=== PATIENT | male | born 1955 | race Caucasian/White ===

== ENCOUNTER → 2020-05-25 | Outpatient (CLI) | payer OTHER, BLACK LUNG ==
[~2020-05-25] MED LIST: BREO ELLIPTA 21 EACH INH; CHANTIX1 MG PO; CORDARONE 200M200 MG PO; CYANOCOBAL1000 MCG/1 INJ; FLOMAX 0.4 MG0.4 MG PO; LEVOFLOXACIN500 MG PO; LIPITOR TAB 2020 MG PO; PERCOCET 5/325 T1 EA PO; PRINIVIL20 MG PO; PROSCAR5 MG PO; VENTOLIN HFA 66.7 GM INH; VITAMIN B-12100 MC1 INJ
== END ==
LOC: CT 08:08
DX: J60 Coalworker's pneumoconiosis (principal); J43.9 Emphysema, unspecified; Z72.0 Tobacco use; I10 Essential (primary) hypertension; I25.2 Old myocardial infarction; E78.2 Mixed hyperlipidemia; E11.40 Type 2 diabetes mellitus with diabetic neuropathy, unspecified
CPT/HCPCS: 36415; 71260; 82565; Q9963

== ENCOUNTER 2020-12-27 08:52 | Inpatient (IN) | payer OTHER ==
[~2020-12-27] VITALS: Ht 167.6 cm; Wt 90.3 kg
[~2020-12-27 08:52] MED LIST changes: -LIPITOR TAB 2020 MG PO; -VENTOLIN HFA 66.7 GM INH
[2020-12-27 10:34] LABS: HEMOGLOBIN 15.9 gm/dl (14.0-17.5); RED BLOOD COUNT 4.92 M/UL (4.20-5.50)
[2020-12-28] MEDS ORDERED: LIPITOR TAB 2020 MG PO (00:30)
[2020-12-28 03:16] LABS: WHITE BLOOD COUNT 12.4 K/UL (4.5-11.0)
[2020-12-28 03:25] LABS: RED BLOOD COUNT 4.11 M/UL (4.20-5.50)
[2020-12-28 03:36] LABS: BUN/CREATININE RATIO 15 (0-10)
[2020-12-28] MEDS ORDERED: NABUMETONE500 MG PO (11:05)
[2020-12-28] MEDS ORDERED: TRELEGY ELLIPT1 EACH INH (11:05)
[2020-12-28] MEDS ORDERED: ASPIRIN EC81 MG PO ×2 (11:06→11:14)
[2020-12-28] MEDS ORDERED: COMBIVENT RESPIM4 GM INH (11:06)
[2020-12-28] MEDS ORDERED: DICLOFENAC SOD100 GM TOP (11:10)
[2020-12-28] MEDS ORDERED: TOPIRAMATE50 MG PO (11:11)
[2020-12-28] MEDS ORDERED: METOPROLOL SUCC50 MG PO (11:11)
[2020-12-28] MEDS ORDERED: DRISDOL1250 MCG PO (11:12)
[2020-12-28] MEDS ORDERED: CELECOXIB200 MG PO (11:13)
[2020-12-28] MEDS ORDERED: SLEEP AID25 M1 PO (11:14)
[2020-12-28] MEDS ORDERED: VENTOLIN HFA 66.7 GM INH (18:24)
[2020-12-29 06:53] LABS: HEMOGLOBIN 12.4 gm/dl (14.0-17.5); RED BLOOD COUNT 3.93 M/UL (4.20-5.50); WHITE BLOOD COUNT 10.5 K/UL (4.5-11.0)
[2020-12-29 07:36] LABS: BUN/CREATININE RATIO 11 (0-10)
[2020-12-30 06:22] LABS: HEMOGLOBIN 12.2 gm/dl (14.0-17.5); RED BLOOD COUNT 3.86 M/UL (4.20-5.50); WHITE BLOOD COUNT 9.5 K/UL (4.5-11.0)
[2020-12-30 06:39] LABS: BUN/CREATININE RATIO 13 (0-10)
--- NOTE | 2020-12-30 11:41 | NUR ---
1100: OBTAINED A ROOM AIR SPO2 ON PATIENT D/T TO PATIENT GETTING UP WITHOUT OXYGEN TO GO TO BATHROOM AND OXYGEN DROPPING FOWN IN THE 80'S. ROOM AIR SPO2 NOTED AT 85%. RN NOTIFIED DR MAO.
[2020-12-30] MEDS ORDERED: OMNICEF 300 MG300 MG PO (13:01)
[2020-12-30] MEDS ORDERED: ZITHROMAX500 MG PO (13:01)
--- NOTE | 2020-12-30 15:56 | NUR ---
1555: PATIENT DEPARTS FOR DISCHARGE VIA WHEELCARE WITH OXYGEN AND PERSONAL BELONGINGS.
== END 2020-12-30 16:02 | disposition home or self-care (01) | DRG 871 ==
LOC: ER1 08:52 → CDU 16:06 → MED SURG 4 16:06
PROVIDERS: Physician Assistant Medical; ADMIT Internal Medicine
DX: A41.9 Sepsis, unspecified organism (principal); J96.01 Acute respiratory failure with hypoxia; J18.9 Pneumonia, unspecified organism; N17.9 Acute kidney failure, unspecified; Z20.822 Contact with and (suspected) exposure to COVID-19; N40.0 Benign prostatic hyperplasia without lower urinary tract symptoms; I10 Essential (primary) hypertension; I25.10 Atherosclerotic heart disease of native coronary artery without angina pectoris; R65.20 Severe sepsis without septic shock; R73.03 Prediabetes; F17.210 Nicotine dependence, cigarettes, uncomplicated; J32.9 Chronic sinusitis, unspecified; Z79.82 Long term (current) use of aspirin; Z82.49 Family history of ischemic heart disease and other diseases of the circulatory system; Z80.1 Family history of malignant neoplasm of trachea, bronchus and lung; Z95.5 Presence of coronary angioplasty implant and graft
CPT/HCPCS: 36600; 70470; 71045; 80053; 82550; 82553; 82803; 82962; 83605; 83735; 83874; 84484; 85025; 87040; 93005; 94640; 94760; 96374; 99285; C9113; J0456; J0696; J1650; J7030; J7070; Q9967; U0002; U0003

== ENCOUNTER → 2020-12-31 | Outpatient (CLI) | payer OTHER ==
[~2020-12-31] MED LIST changes: +ASPIRIN EC81 MG PO; +CELECOXIB200 MG PO; +COMBIVENT RESPIM4 GM INH; +DICLOFENAC SOD100 GM TOP; +DRISDOL1250 MCG PO; +LIPITOR TAB 2020 MG PO; +METOPROLOL SUCC50 MG PO; +NABUMETONE500 MG PO; +OMNICEF 300 MG300 MG PO; +SLEEP AID25 M1 PO; +TOPIRAMATE50 MG PO; +TRELEGY ELLIPT1 EACH INH; +VENTOLIN HFA 66.7 GM INH; +ZITHROMAX500 MG PO
== END ==
LOC: RAD 08:10
DX: J18.9 Pneumonia, unspecified organism (principal)
CPT/HCPCS: 71046

== ENCOUNTER → 2021-01-01 | Outpatient (CLI) | payer OTHER | LOC: MRI 12:27 | PROVIDERS: Psychiatry & Neurology Neurology | DX: G31.84 Mild cognitive impairment of uncertain or unknown etiology (principal) | CPT/HCPCS: 36415; 70553; 80053; A9577 ==

== ENCOUNTER → 2021-01-08 | Outpatient (CLI) | payer OTHER ==
[~2021-01-08] MED LIST changes: +LOMOTIL 2.5-0.1 EACH PO; +REGLAN10 MG PO
== END ==
LOC: EMI 08:17
DX: M54.2 Cervicalgia (principal)
CPT/HCPCS: 72141

== ENCOUNTER 2021-01-10 17:57 | Inpatient (IN) | payer OTHER ==
[~2021-01-10] VITALS: Ht 182.9 cm; Wt 92.1 kg
[~2021-01-10 17:57] MED LIST changes: -LOMOTIL 2.5-0.1 EACH PO; -REGLAN10 MG PO
[2021-01-10 18:29] LABS: HEMOGLOBIN 13.8 gm/dl (14.0-17.5); RED BLOOD COUNT 4.56 M/UL (4.20-5.50); WHITE BLOOD COUNT 12.8 K/UL (4.5-11.0)
[2021-01-10] MEDS ORDERED: LOMOTIL 2.5-0.1 EACH PO (19:08)
[2021-01-10] MEDS ORDERED: REGLAN10 MG PO (19:08)
[2021-01-12 03:31] LABS: HEMOGLOBIN 13.5 gm/dl (14.0-17.5); RED BLOOD COUNT 4.47 M/UL (4.20-5.50); WHITE BLOOD COUNT 8.4 K/UL (4.5-11.0)
[2021-01-12 03:54] LABS: BUN/CREATININE RATIO 15 (0-10)
[2021-01-12] MEDS ORDERED: ATORVASTATIN CA20 MG PO (08:55)
[2021-01-12] MEDS ORDERED: COZAAR 25MG TAB25 MG PO (08:55)
[2021-01-12] MEDS ORDERED: BRILINTA 90 MG90 MG PO (08:55)
[2021-01-12] MEDS ORDERED: NITROGLYCERIN0.4 MG SL (08:55)
== END 2021-01-12 11:45 | disposition home or self-care (01) | DRG 246 ==
LOC: ER1 17:57 → PROG CARE 19:27 → CDU 19:27 → PROG CARE 01-11 11:08
PROVIDERS: Emergency Medicine; Internal Medicine Cardiovascular Disease; Physician Assistant; ADMIT Internal Medicine
PROC: 3E0234Z Introduction of Serum, Toxoid and Vaccine into Muscle, Percutaneous Approach (ICD-10-PCS; 2021-01-10)
PROC: 027034Z Dilation of Coronary Artery, One Artery with Drug-eluting Intraluminal Device, Percutaneous Approach (ICD-10-PCS; principal; 2021-01-11)
PROC: B24BZZ4 Ultrasonography of Heart with Aorta, Transesophageal (ICD-10-PCS; 2021-01-11)
PROC: 4A023N7 Measurement of Cardiac Sampling and Pressure, Left Heart, Percutaneous Approach (ICD-10-PCS; 2021-01-11)
PROC: B2111ZZ Fluoroscopy of Multiple Coronary Arteries using Low Osmolar Contrast (ICD-10-PCS; 2021-01-11)
DX: I21.4 Non-ST elevation (NSTEMI) myocardial infarction (principal); J18.9 Pneumonia, unspecified organism; N17.9 Acute kidney failure, unspecified; N18.30 Chronic kidney disease, stage 3 unspecified; Z20.822 Contact with and (suspected) exposure to COVID-19; N40.0 Benign prostatic hyperplasia without lower urinary tract symptoms; I12.9 Hypertensive chronic kidney disease with stage 1 through stage 4 chronic kidney disease, or unspecified chronic kidney disease; I25.5 Ischemic cardiomyopathy; I45.10 Unspecified right bundle-branch block; F17.210 Nicotine dependence, cigarettes, uncomplicated; E11.22 Type 2 diabetes mellitus with diabetic chronic kidney disease; I08.1 Rheumatic disorders of both mitral and tricuspid valves; Z87.01 Personal history of pneumonia (recurrent); Z79.82 Long term (current) use of aspirin; Z79.01 Long term (current) use of anticoagulants; Z95.5 Presence of coronary angioplasty implant and graft; Z82.49 Family history of ischemic heart disease and other diseases of the circulatory system; Z23 Encounter for immunization
CPT/HCPCS: ECHO; 36415; 71045; 80048; 80053; 80061; 82550; 82553; 83690; 83735; 83874; 84484; 85025; 85347; 85610; 85730; 93005; 93306; 94640; 94664; 94760; 96372; 96374; 99152; 99153; 99285; C1725; C1769; C1874; C1887; C1894; C9600; G0378; J0461; J1644; J2250; J3010; J3246; J7030; Q9965; Q9967; U0002

== ENCOUNTER 2021-03-17 16:44 | Emergency (ER) | payer OTHER ==
[~2021-03-17 16:44] MED LIST changes: +ATORVASTATIN CA20 MG PO; +BRILINTA 90 MG90 MG PO; +COZAAR 25MG TAB25 MG PO; +LOMOTIL 2.5-0.1 EACH PO; +NITROGLYCERIN0.4 MG SL; +REGLAN10 MG PO
[2021-03-17 19:56] LABS: HEMOGLOBIN 13.8 gm/dl (14.0-17.5); RED BLOOD COUNT 4.56 M/UL (4.20-5.50); WHITE BLOOD COUNT 9.3 K/UL (4.5-11.0)
[2021-03-17 20:18] LABS: BUN/CREATININE RATIO 21 (0-10)
== END 2021-03-17 21:00 | disposition home or self-care (01) ==
LOC: ER1 16:44
PROVIDERS: Family Medicine
DX: R51.9 Headache, unspecified (principal); R68.84 Jaw pain; I25.10 Atherosclerotic heart disease of native coronary artery without angina pectoris; N28.9 Disorder of kidney and ureter, unspecified; J44.9 Chronic obstructive pulmonary disease, unspecified; I11.9 Hypertensive heart disease without heart failure; F17.200 Nicotine dependence, unspecified, uncomplicated; I25.2 Old myocardial infarction
CPT/HCPCS: 70496; 80048; 82550; 82553; 83874; 84484; 85025; 93005; 99284; Q9967